=== PATIENT | female | born 1980 | race Caucasian/White ===

== ENCOUNTER 2019-03-29 15:15 | Inpatient (IN) | payer OTHER ==
[~2019-03-29] VITALS: Ht 160 cm; Wt 69.0 kg
[~2019-03-29 15:15] MED LIST: PNV11TAB PO
[2019-03-29 15:35] VITALS: Ht 160 cm; Wt 69.0 kg
[2019-03-29] MEDS ORDERED: LACTATED RINGER'S 1,000 ML IV SCH (15:36)
[2019-03-29] MEDS ORDERED: CEFAZOLIN 2 GM/50 ML (PMX) 50 ML IVPB SCH (16:00)
[2019-03-29] MEDS ORDERED: CARBOPROST 250 MCG INJ IM PRN ×2 (16:00→20:30)
[2019-03-29] MEDS ORDERED: MISOPROSTOL 200 MCG TAB PR PRN ×2 (16:00→20:30)
[2019-03-29] MEDS ORDERED: OXYTOCIN 30 UNITS/LR 500 ML IV PRN ×2 (16:00→20:30)
[2019-03-29] MEDS ORDERED: OXYTOCIN 30 UNITS/LR 500 ML IV SCH ×2 (16:00→20:02)
[2019-03-29] MEDS ORDERED: METHYLERGONOVINE 0.2 MG INJ IM PRN ×2 (16:00→20:30)
[2019-03-29 17:09] VITALS: BP 131/72; PULSE 87; RESP 18
[2019-03-29] MEDS ORDERED: METOCLOPRAMIDE 10 MG INJ IV PRN (18:00)
[2019-03-29] MEDS ORDERED: FENTAnyl 2MCG/ML-ROPIV 0.2% 100 ML BAG EPI SCH (18:00)
[2019-03-29] MEDS ORDERED: HYDROmorphONE 1 MG/5 ML IV SYRINGE IV PRN ×2 (18:00)
[2019-03-29] MEDS ORDERED: DIPHENHYDRAMINE 50 MG INJ IV PRN ×2 (18:00)
[2019-03-29] MEDS ORDERED: HYDROmorphONE 0.5 MG/0.5 ML SYG IV PRN ×2 (18:00)
[2019-03-29] MEDS ORDERED: ONDANSETRON 4 MG INJ IV PRN ×2 (18:00)
[2019-03-29] MEDS ORDERED: FENTAnyl 50 MCG/ML VIAL IV PRN ×2 (18:00)
[2019-03-29] MEDS ORDERED: NALOXONE (0.4 MG/ML) INJ IV PRN (18:00)
[2019-03-29] MEDS ORDERED: ALBUTEROL 0.083% (NEB) 2.5 MG/3 ML AMP HHN PRN (18:00)
[2019-03-29] MEDS ORDERED: KETOROLAC 30 MG INJ IV PRN (18:00)
[2019-03-29] MEDS ORDERED: PHENYLephrine (100 MCG/ML) 10ML SYG ONE (18:01)
[2019-03-29] MEDS ORDERED: morphine SULFATE/PF (10 MG/10 ML) INJ ONE (18:01)
[2019-03-29] MEDS ORDERED: OXYTOCIN 30 UNITS/LR 500 ML BAG IV ONE (18:01)
[2019-03-29] MEDS ORDERED: EPHEDrine 25 MG/5 ML SYG ONE (18:01)
[2019-03-29] MEDS: KETOROLAC 30 MG INJ IV PRN (19:28)
[2019-03-29] MEDS ORDERED: LANOLIN HPA 1 PKT TOP PRN (20:30)
[2019-03-29] MEDS ORDERED: NACL 0.9% 3 ML SYG IV SCH (20:30)
[2019-03-29] MEDS ORDERED: OXYCODONE/ACETAMINOPHEN (5/325) TAB PO PRN ×2 (20:30)
[2019-03-29 21:35] VITALS: BP 125/73; PULSE 78; RESP 19
[2019-03-29 23:00] VITALS: BP 118/64; PULSE 78; RESP 21
[2019-03-29] MEDS: CEFAZOLIN 2 GM/50 ML (PMX) 50 ML IVPB SCH (23:22)
[2019-03-30 03:50] VITALS: BP 101/54; PULSE 89; RESP 16
[2019-03-30] MEDS: KETOROLAC 30 MG INJ IV PRN ×2 (04:44→12:11)
[2019-03-30] MEDS: IBUPROFEN 600 MG TAB PO SCH ×4 (07:00→18:26)
[2019-03-30 08:30] VITALS: BP 104/64; PULSE 79; RESP 19
[2019-03-30 12:00] VITALS: BP 104/63; PULSE 98; RESP 16
[2019-03-30] MEDS: CEFAZOLIN 2 GM/50 ML (PMX) 50 ML IVPB SCH ×2 (12:10→18:27)
[2019-03-30 16:00] VITALS: BP 124/66; PULSE 92; RESP 18
[2019-03-30 20:00] VITALS: BP 109/62; PULSE 99; RESP 18
[2019-03-31] MEDS: IBUPROFEN 600 MG TAB PO SCH ×4 (00:38→18:01)
[2019-03-31 04:00] VITALS: BP 105/60; PULSE 80; RESP 18
[2019-03-31 08:00] VITALS: BP 117/60; PULSE 92; RESP 18
[2019-03-31 16:02] VITALS: BP 120/68; PULSE 95; RESP 18
[2019-03-31 22:00] VITALS: BP 116/70; PULSE 83; RESP 18
[2019-04-01] MEDS: IBUPROFEN 600 MG TAB PO SCH ×3 (00:43→12:13)
[2019-04-01 04:30] VITALS: BP 116/72; PULSE 80; RESP 18
[2019-04-01 09:07] VITALS: BP 130/75; PULSE 84; RESP 18
== END 2019-04-01 14:40 | disposition home or self-care (01) | DRG 785 ==
LOC: L-D 15:15 → PP1 21:17
PROVIDERS: ADMIT Obstetrics & Gynecology; ATTEND Obstetrics & Gynecology
PROC: 0UB70ZZ Excision of Bilateral Fallopian Tubes, Open Approach (ICD-10-PCS; 2019-03-29)
PROC: 10D00Z1 Extraction of Products of Conception, Low, Open Approach (ICD-10-PCS; principal; 2019-03-29 17:00)
DX: O34.211 Maternal care for low transverse scar from previous cesarean delivery (principal); Z3A.39 39 weeks gestation of pregnancy; Z37.0 Single live birth; Z30.2 Encounter for sterilization
CPT/HCPCS: 85014; 85018; 85025; 85610; 85730; 86592; 86850; 86870; 86885; 86900; 86901; 88302; 99464; J0690; J1885; J2210; J2274; J2370; J2405; J2590; J2765; J2790; J7120